=== PATIENT | female | born 1980 | race Caucasian/White ===

== ENCOUNTER 2018-05-14 18:09 | Emergency (ER) | payer MEDICAID, OTHER ==
[~2018-05-14] VITALS: Ht 162.6 cm; Wt 57.7 kg
[~2018-05-14 18:09] MED LIST: CYCL10 PO; HYDR2 PO; IBUP-2343 PO; PROM25 PO
[2018-05-14 18:19] VITALS: BP 142/51
[2018-05-14] MEDS ORDERED: GENTAMICIN SULFATE 0.3% OPHTHALMIC SOLUTION 5 ML OD ONE (18:45)
[2018-05-14] MEDS ORDERED: ACETAMINOPHEN 500 MG TABLET PO ONE (18:45)
== END 2018-05-14 19:02 | disposition home or self-care (01) ==
LOC: EMS 18:12
DX: H10.9 Unspecified conjunctivitis (principal)
CPT/HCPCS: 99283